=== PATIENT | male | born 1955 | race Two or more races ===

== ENCOUNTER 2018-02-11 07:07 | Emergency (ER) | payer OTHER ==
[~2018-02-11] VITALS: Ht 177.8 cm; Wt 77.1 kg
[~2018-02-11 07:07] MED LIST: ZOLOFT50 MG PO
== END 2018-02-11 13:59 | disposition home or self-care (01) ==
LOC: ER 07:07 → CPU-OBS 07:28 → ER 13:59
DX: R07.89 Other chest pain (principal); K29.70 Gastritis, unspecified, without bleeding
CPT/HCPCS: G0378; G0379; 93005

== ENCOUNTER 2018-02-23 08:53 | Outpatient (CLI) | payer OTHER | END 2018-02-23 17:00 | disposition home or self-care (01) | LOC: TOM 08:53 | DX: R31.9 Hematuria, unspecified (principal); N20.0 Calculus of kidney ==

== ENCOUNTER 2018-02-23 10:36 | Emergency (ER) | payer OTHER ==
[~2018-02-23] VITALS: Ht 177.8 cm; Wt 79.4 kg
== END 2018-02-23 14:24 | disposition home or self-care (01) ==
LOC: ER 10:36
DX: G25.1 Drug-induced tremor (principal); T50.8X5A Adverse effect of diagnostic agents, initial encounter; Y92.89 Other specified places as the place of occurrence of the external cause

== ENCOUNTER 2018-04-16 18:14 | Emergency (ER) | payer OTHER ==
[~2018-04-16] VITALS: Ht 170.2 cm; Wt 77.1 kg
== END 2018-04-16 21:35 | disposition home or self-care (01) ==
LOC: ER 18:14
DX: R10.31 Right lower quadrant pain (principal); N20.2 Calculus of kidney with calculus of ureter

== ENCOUNTER 2018-12-05 15:09 | Emergency (ER) | payer OTHER ==
[~2018-12-05] VITALS: Ht 177.8 cm; Wt 77.1 kg
== END 2018-12-05 21:34 | disposition home or self-care (01) ==
LOC: ER 15:09
DX: N20.0 Calculus of kidney (principal); R10.813 Right lower quadrant abdominal tenderness; M54.5 Low back pain

== ENCOUNTER 2018-12-28 14:29 | Emergency (ER) | payer OTHER ==
[~2018-12-28] VITALS: Ht 177.8 cm; Wt 79.4 kg
== END 2018-12-28 17:05 | disposition home or self-care (01) ==
LOC: ER 14:29
DX: M54.5 Low back pain (principal)

== ENCOUNTER 2020-02-14 05:43 | Emergency (ER) | payer OTHER ==
[~2020-02-14] VITALS: Ht 177.8 cm; Wt 79.4 kg
== END 2020-02-14 09:52 | disposition home or self-care (01) ==
LOC: ER 05:43
DX: N20.0 Calculus of kidney (principal); R10.2 Pelvic and perineal pain

== ENCOUNTER 2020-02-17 19:25 | Emergency (ER) | payer OTHER ==
[~2020-02-17] VITALS: Ht 177.8 cm; Wt 77.1 kg
== END 2020-02-18 00:35 | disposition home or self-care (01) ==
LOC: ER 19:25
DX: N20.2 Calculus of kidney with calculus of ureter (principal)

== ENCOUNTER 2020-03-17 01:31 | Emergency (ER) | payer OTHER ==
[~2020-03-17] VITALS: Ht 177.8 cm; Wt 76.2 kg
[2020-03-17] MEDS ORDERED: TAMS0.4C PO (07:09)
[2020-03-17] MEDS ORDERED: CIPRO500 MG PO (07:09)
[2020-03-17] MEDS ORDERED: KETO10TA2 PO (07:10)
[2020-03-30] MEDS ORDERED: ULTRAM50 MG PO (11:19)
== END 2020-03-17 08:18 | disposition home or self-care (01) ==
LOC: ER 01:31
DX: N20.0 Calculus of kidney (principal); R10.32 Left lower quadrant pain

== ENCOUNTER → 2020-03-20 | Outpatient (CLI) | payer OTHER ==
[~2020-03-20] MED LIST changes: +CIPRO500 MG PO; +KETO10TA2 PO; +TAMS0.4C PO; +ULTRAM50 MG PO
== END | disposition home or self-care (01) ==
LOC: RAD 14:36
PROVIDERS: ATTEND Urology
DX: N40.0 Benign prostatic hyperplasia without lower urinary tract symptoms (principal); N20.0 Calculus of kidney

== ENCOUNTER 2020-04-06 06:00 | Day surgery (SDC) | payer OTHER | END 2020-04-06 20:50 | disposition home or self-care (01) | LOC: CIR.AMB 06:00 | PROVIDERS: ATTEND Urology | DX: N20.1 Calculus of ureter (principal); Z20.828 Contact with and (suspected) exposure to other viral communicable diseases ==

== ENCOUNTER 2020-06-15 15:01 | Outpatient (CLI) | payer OTHER | END 2020-06-15 15:26 | disposition home or self-care (01) | LOC: RAD 15:01 | PROVIDERS: ATTEND Urology | DX: N40.0 Benign prostatic hyperplasia without lower urinary tract symptoms (principal); N20.0 Calculus of kidney ==

== ENCOUNTER 2020-08-30 12:49 | Emergency (ER) | payer OTHER ==
[~2020-08-30] VITALS: Ht 177.8 cm; Wt 79.4 kg
== END 2020-08-30 16:40 | disposition home or self-care (01) ==
LOC: ER 12:49
DX: S01.82XA Laceration with foreign body of other part of head, initial encounter (principal); W22.8XXA Striking against or struck by other objects, initial encounter; Y93.89 Activity, other specified; Y92.098 Other place in other non-institutional residence as the place of occurrence of the external cause; Y99.8 Other external cause status

== ENCOUNTER 2020-09-11 06:32 | Day surgery (SDC) | payer OTHER | END 2020-09-11 16:00 | disposition home or self-care (01) | LOC: CIR.AMB 06:32 | PROVIDERS: ATTEND Urology | DX: N20.0 Calculus of kidney (principal); Z20.828 Contact with and (suspected) exposure to other viral communicable diseases ==

== ENCOUNTER → 2020-09-24 | Outpatient (CLI) | payer OTHER | END | disposition home or self-care (01) | LOC: RAD 14:14 | PROVIDERS: ATTEND Urology | DX: N20.1 Calculus of ureter (principal) ==

== ENCOUNTER 2020-10-16 10:15 | Day surgery (SDC) | payer OTHER | END 2020-10-16 21:40 | disposition home or self-care (01) | LOC: CIR.AMB 10:15 | PROVIDERS: ATTEND Urology | DX: N20.1 Calculus of ureter (principal); N20.0 Calculus of kidney; Z20.822 Contact with and (suspected) exposure to COVID-19 ==

== ENCOUNTER 2020-11-02 13:52 | Outpatient (CLI) | payer OTHER | END 2020-11-02 14:04 | disposition home or self-care (01) | LOC: RAD 13:52 | PROVIDERS: ATTEND Urology | DX: N20.1 Calculus of ureter (principal) ==

== ENCOUNTER 2020-11-23 08:00 | Day surgery (SDC) | payer OTHER ==
[~2020-11-23] VITALS: Ht 177.8 cm; Wt 77.1 kg
== END 2020-11-23 08:30 | disposition home or self-care (01) ==
LOC: CIR.AMB 08:00 → SURH 11:00 → O/R 16:50
PROVIDERS: ATTEND Urology
DX: N20.0 Calculus of kidney (principal); Z20.822 Contact with and (suspected) exposure to COVID-19

== ENCOUNTER 2020-12-09 11:30 | Inpatient (IN) | payer OTHER ==
[~2020-12-09] VITALS: Ht 177.8 cm; Wt 77.1 kg
== END 2020-12-12 13:12 | disposition home or self-care (01) | DRG 690 ==
LOC: ER 11:30 → SEC-K 21:34 → SURH 12-10 16:37
PROVIDERS: ADMIT Urology; ATTEND Urology
PROC: BW21ZZZ Computerized Tomography (CT Scan) of Abdomen and Pelvis (ICD-10-PCS; principal; 2020-12-09)
DX: N10 Acute pyelonephritis (principal); N30.01 Acute cystitis with hematuria; B96.20 Unspecified Escherichia coli [E. coli] as the cause of diseases classified elsewhere; Z20.822 Contact with and (suspected) exposure to COVID-19

== ENCOUNTER → 2021-01-19 | Emergency (ER) | payer OTHER ==
[~2021-01-19] VITALS: Ht 177.8 cm; Wt 77.1 kg
== END | disposition home or self-care (01) ==
LOC: ER 15:49
DX: M62.830 Muscle spasm of back (principal); M54.5 Low back pain

== ENCOUNTER 2021-12-31 12:06 | Emergency (ER) | payer OTHER ==
[~2021-12-31] VITALS: Ht 177.8 cm; Wt 77.1 kg
[2021-12-31] MEDS ORDERED: KETO10TA2 PO (16:16)
[2021-12-31] MEDS ORDERED: TAMS0.4C PO (16:16)
[2021-12-31] MEDS ORDERED: CIPRO500 MG PO (16:16)
== END 2021-12-31 16:54 | disposition home or self-care (01) ==
LOC: ER 12:06
DX: N20.9 Urinary calculus, unspecified (principal); R10.9 Unspecified abdominal pain; Z88.8 Allergy status to other drugs, medicaments and biological substances

== ENCOUNTER 2022-10-15 11:06 | Emergency (ER) | payer OTHER ==
[~2022-10-15] VITALS: Ht 177.8 cm; Wt 79.4 kg
== END 2022-10-15 14:09 | disposition home or self-care (01) ==
LOC: ER 11:06
DX: N23 Unspecified renal colic (principal); Z88.5 Allergy status to narcotic agent

== ENCOUNTER 2022-12-13 08:16 | Outpatient (CLI) | payer OTHER | END 2022-12-13 08:26 | disposition home or self-care (01) | LOC: RAD 08:16 | PROVIDERS: ATTEND Urology | DX: N20.1 Calculus of ureter (principal); R31.1 Benign essential microscopic hematuria ==

== ENCOUNTER 2023-01-05 10:56 | Outpatient (CLI) | payer OTHER | END 2023-01-05 14:08 | disposition home or self-care (01) | LOC: TOM 10:56 | PROVIDERS: ATTEND Urology | DX: N40.0 Benign prostatic hyperplasia without lower urinary tract symptoms (principal); N20.0 Calculus of kidney; N20.1 Calculus of ureter ==

== ENCOUNTER 2023-01-20 09:00 | Day surgery (SDC) | payer OTHER ==
[~2023-01-20] VITALS: Ht 177.8 cm; Wt 79.4 kg
== END 2023-01-20 21:00 | disposition home or self-care (01) ==
LOC: CIR.AMB 09:00
PROVIDERS: ATTEND Urology
DX: N20.2 Calculus of kidney with calculus of ureter (principal); Z20.822 Contact with and (suspected) exposure to COVID-19

== ENCOUNTER → 2023-02-17 | Day surgery (SDC) | payer OTHER ==
[~2023-02-17] VITALS: Ht 177.8 cm; Wt 74.8 kg
== END | disposition home or self-care (01) ==
LOC: ADM 02-13 09:15 → CIR.AMB 06:16
PROVIDERS: ATTEND Urology
DX: N20.1 Calculus of ureter (principal); N35.919 Unspecified urethral stricture, male, unspecified site; Z20.822 Contact with and (suspected) exposure to COVID-19; Z91.041 Radiographic dye allergy status; Z88.6 Allergy status to analgesic agent; Z87.891 Personal history of nicotine dependence

== ENCOUNTER 2023-05-04 10:59 | Outpatient (CLI) | payer OTHER | END 2023-05-04 11:07 | disposition home or self-care (01) | LOC: RAD 10:59 | PROVIDERS: ATTEND Urology | DX: N20.0 Calculus of kidney (principal) ==

== ENCOUNTER 2023-06-30 16:23 | Emergency (ER) | payer OTHER ==
[~2023-06-30] VITALS: Ht 172.7 cm; Wt 77.1 kg
[2023-06-30] MEDS ORDERED: DICLOFENAC SODI75 MG PO (18:37)
[2023-06-30] MEDS ORDERED: MEDROLPACK PO (18:37)
[2023-06-30] MEDS ORDERED: NORFLEX100MG PO (18:37)
[2023-06-30] MEDS ORDERED: PEPCID AC20 MG PO (18:38)
== END 2023-06-30 19:19 | disposition home or self-care (01) ==
LOC: ER 16:23
DX: M54.89 Other dorsalgia (principal); M51.36 Other intervertebral disc degeneration, lumbar region; Z88.8 Allergy status to other drugs, medicaments and biological substances